=== PATIENT | female | born 1965 | race Caucasian/White ===

== ENCOUNTER → 2016-03-30 | Outpatient (CLI) | payer MEDICAID | LOC: FIMAGING 14:56 | DX: Z12.31 Encounter for screening mammogram for malignant neoplasm of breast (principal) | CPT/HCPCS: G0202 ==

== ENCOUNTER → 2016-06-18 | Outpatient (CLI) | payer MEDICAID | LOC: FIMAGING 09:36 | PROVIDERS: ATTEND Nurse Practitioner Women's Health | DX: Z13.820 Encounter for screening for osteoporosis (principal); Z87.81 Personal history of (healed) traumatic fracture ==

== ENCOUNTER → 2016-08-17 | Outpatient (CLI) | payer MEDICAID | LOC: FIMAGING 10:04 | PROVIDERS: ATTEND Obstetrics & Gynecology Gynecology | DX: E04.2 Nontoxic multinodular goiter (principal); N92.0 Excessive and frequent menstruation with regular cycle ==

== ENCOUNTER 2016-08-25 20:41 | Emergency (ER) | payer MEDICAID ==
--- NOTE | 2016-08-25 20:45 | EDPHY ---
H & P Smoking Status: Current every day smoker HPI/ROS: CHIEF COMPLAINT: Allergic reaction HISTORY OF PRESENT ILLNESS: This patient is a 51 year old female presenting with acute allergic reaction following a wasp sting to her left hand 40 minutes ago. She noted local swelling and took two Benadryl at home. She continued to feel worse and developed swollen lips and tongue and itching all over her body. She has never had a reaction like this before. No dizziness or shortness of breath. REVIEW OF SYSTEMS: Constitutional: No fever, no chills Eyes: No visual changes Respiratory: No cough, no shortness of breath Cardiac: No chest pain Gastrointestinal: No nausea, no vomiting, no abdominal pain Genitourinary: no dysuria Musculoskeletal: No extremity swelling Skin: No hives Neurological: No headache Psychiatric: Feels anxious (Ceci Roca) Past Medical/Surgical History: Depression (Ceci Roca) Social History: Daughter at bedside (Ceci Roca) Physical Exam: General Appearance: Alert, anxious Eyes: Pupils equal and round, mild periorbital swelling ENT, Mouth: Moderate lip swelling, mild tongue swelling. Mucous membranes moist. Neck: Normal inspection, no stridor Respiratory: Lungs are clear to auscultation, no wheezing Cardiovascular: Regular rate and rhythm Neurological: A&O, nonfocal, normal gait Skin: Erythema over the anterior chest wall and the left hand; no hives present Extremities: Swelling of left hand Psychiatric: Anxious (Ceci Roca) Constitutional: Initial Vital Signs Temperature (C) 36.4 C 08/25/16 20:48 Heart Rate 104 H 08/25/16 20:48 Respiratory Rate 22 H 08/25/16 20:48 Blood Pressure 80/65 L 08/25/16 20:48 O2 Sat (%) 98 08/25/16 20:48 O2 Delivery Mode Room Air O2 (L/minute) 3 Allergies/Adverse Reactions: penicillin G Allergy (Verified 08/12/12 02:41) Home Medications: Medication Instructions Recorded Cephalexin [Keflex] 500 mg PO QID #28 cap 12/17/12 Hydrocodone Bit/Acetaminophen 1 - 2 tab PO Q4-6PRN #20 tab 12/17/12 [Vicodin 5/500] NO HOME MEDS 12/17/12 Hydrocodone/APAP 5/325 [[place] 1 - 2 tab PO Q4H PRN #14 tab 12/22/14 5/325] Hydrocodone/APAP 5/325 [[place] 1 - 2 tab PO Q4 PRN #10 tab 03/29/15 5/325 (RX)] VYVANSE 03/29/15 EPINEPHRINE [EPIPEN] 0.3 mg IM ONCE #2 syr 08/25/16 predniSONE 60 mg PO DAILY #9 tab 08/25/16 Medical Decision Making ED Course/Re-evaluation: 51 year old female presenting with acute anaphylaxis to a wasp sting on the left hand 40 minutes ago. 20:42 Administered 0.3mg IM Epinephrine 20:44 Administered 50mg IV Benadryl, 50mg IV Zantac, and 125mcg IV methylprednisolone. Observed patient. She is improving. BP 114/97 9pm: Continues to feel better. 21:10 Care of this patient transferred to Dr. Bonilla at shift change. (Ceci Roca) I assumed care of this patient at 9:00 p.m.. She was serially examined during her stay in the department. She remained normotensive. She had some mild tongue swelling that persisted. She was swallowing easily and had no respiratory difficulty. Lungs remained clear, no wheezing. At the time of my 3rd exam, at 10:45 p.m., she was complaining of left hand pain itching related to the site of the sting. She is not itching otherwise but has excoriations on her lower back from scratching earlier. She will be discharged home in stable condition. RX written by Dr. Roca. ( Candy Bonilla) Differential Diagnosis: Differential diagnosis includes though it is not limited to laryngeal edema, bronchospasm, hypotension, angioedema. (Ceci Roca) - Data Points Medications Given: Discontinued Medications Diphenhydramine HCl (Benadryl Injection) 50 mg IVP EDNOW ONE Stop: 08/25/16 20:58 Last Admin: 08/25/16 21:00 Dose: 50 mg Epinephrine HCl (Epinephrine) 0.3 mg IM EDNOW ONE Stop: 08/25/16 20:57 Last Admin: 08/25/16 21:00 Dose: 0.3 mg Sodium Chloride (Ns) 1,000 mls @ 0 mls/hr IV ONCE ONE PRN Reason: Wide Open Stop: 08/25/16 20:59 Last Admin: 08/25/16 20:45 Dose: 1,000 mls Ibuprofen (Motrin) 600 mg PO EDNOW ONE Stop: 08/26/16 00:08 Last Admin: 08/26/16 00:11 Dose: 600 mg Methylprednisolone Sodium Succinate (Solu-Medrol) 125 mg IVP EDNOW ONE Stop: 08/25/16 20:58 Last Admin: 08/25/16 21:00 Dose: 125 mg Ranitidine HCl (Zantac) 50 mg IVP EDNOW ONE Stop: 08/25/16 20:58 Last Admin: 08/25/16 21:00 Dose: 50 mg Departure - Departure Disposition: Home, Routine, Self-Care Clinical Impression: Anaphylactic reaction Condition: Good Instructions: Epinephrine (By injection), Insect Bite or Sting (ED), Anaphylaxis (ED) Additional Instructions: 1. Take Claritin in the morning and Benadryl at night each day for the next three days. 2. Take your Prednisone as prescribed. 3. EpiPen instructions attached. 4. Follow up with your primary care provider for continued management of your allergy reactions. 5. Return to the emergency department for difficulty breathing, swelling in your mouth or throat, hives, or other worsening of condition. Referrals: Ayo Lynch MD [Primary Care Provider] - As per Instructions Prescriptions: EPINEPHRINE [EPIPEN] 0.3 mg IM ONCE #2 syr predniSONE 60 mg PO DAILY #9 tab Report Scribed for: Ceci Roca Report Scribed by: Carmencita Ovalle Date of Report: 08/25/16 Time of Report: 20:45 Physician Review and Approval Statement: 08/25/16 20:50 Portions of this note were transcribed by a medical billing assistant. I personally performed a history, physical exam, medical decision making, and confirmed accuracy of information the transcribed note (eCci Roca)
[2016-08-25] MEDS ORDERED: RANITIDINE 50 MG/2 ML VIAL IVP ONE (20:57)
[2016-08-25] MEDS ORDERED: methylPREDNISolone SOD SUCC 125 MG/2 ML VIAL IVP ONE (20:57)
[2016-08-25] MEDS ORDERED: NS 1,000 ML IV ONE (20:58)
[2016-08-25 23:01] VITALS: RESP 20; TEMP 98.1
[2016-08-26] MEDS ORDERED: IBUPROFEN 600 MG TAB PO ONE ×2 (00:07→00:08)
[2016-08-26 00:27] VITALS: BP 107/63; PULSE 78; O2SAT 97
== END 2016-08-26 00:26 | disposition home or self-care (01) ==
DX: T63.441A Toxic effect of venom of bees, accidental (unintentional), initial encounter (principal); F17.200 Nicotine dependence, unspecified, uncomplicated
CPT/HCPCS: 96374

== ENCOUNTER 2016-10-07 17:22 | Emergency (ER) | payer MEDICAID ==
[2016-10-07 17:28] VITALS: TEMP 98.1
[2016-10-07] MEDS ORDERED: predniSONE 20 MG TAB PO ONE (17:32)
[2016-10-07] MEDS ORDERED: NS 1,000 ML IV ONE (17:33)
[2016-10-07] MEDS ORDERED: FAMOTIDINE 20 MG in NS 100 ML IV ONE (17:33)
--- NOTE | 2016-10-07 17:38 | EDPHY ---
H & P Stated Complaint: bee stung l foot/itchy/dizzy Time Seen by Provider: 10/07/16 17:28 HPI/ROS: Chief complaint: Wasp sting History of present illness: This is a 51-year-old female who presents to the emergency department for a wasp sting. Patient was stung on her left foot just prior to arrival. She started to develop pain and swelling in the foot. She has developed some tingling in her mouth. She is concerned because in August of this year she was stung on her hand and had an anaphylactic reaction. She came here given her recent history. She has taken 50 mg of Benadryl. She denies other associated signs or symptoms at this time including no swelling of the lips, tongue or throat, no difficulty swallowing or breathing, no rash. Review of systems: A 10 point review of systems was obtained and other than described above was negative - Personal History LMP (Females 10-55): Post Menopausal Current Tetanus/Diphtheria Vaccine: Yes Tetanus Vaccine Date: < 10 years - Medical/Surgical History Hx Asthma: No Hx Chronic Respiratory Disease: No Hx Diabetes: No Hx Cardiac Disease: No Hx Renal Disease: No Hx Cirrhosis: No Hx Alcoholism: No Hx HIV/AIDS: No Hx Splenectomy or Spleen Trauma: No Other PMH: Depression none - Social History Smoking Status: Current every day smoker - Physical Exam Exam: General Appearance: Alert and no distress. Eyes: Pupils equal and round no injection. ENT: No angioedema. No hoarseness, no drooling, no trismus, no stridor. Respiratory: Chest is non tender, lungs are clear to auscultation. Cardiac: regular rate and rhythm Gastrointestinal: Abdomen is soft and non tender, no masses, bowel sounds normal. Musculoskeletal: Neck is supple and non tender. Extremities have full range of motion and are non tender. Skin: Mild erythema to the distal left foot. No other rash. Constitutional: Initial Vital Signs Temperature (C) 36.7 C 10/07/16 17:25 Heart Rate 102 H 10/07/16 17:25 Respiratory Rate 22 H 10/07/16 17:25 Blood Pressure 122/90 H 10/07/16 17:25 O2 Sat (%) 98 10/07/16 17:25 O2 Delivery Mode Room Air Allergies/Adverse Reactions: venom-wasp Allergy (Severe, Verified 10/07/16 17:24) penicillin G Allergy (Verified 10/07/16 17:24) Home Medications: Medication Instructions Recorded EPINEPHRINE [EPIPEN] 0.3 mg IM ONCE #2 syr 08/25/16 predniSONE 40 mg PO DAILY 3 Days 10/07/16 Medical Decision Making ED Course/Re-evaluation: Patient seen under the supervision of my secondary supervising physician Dr. Monty Laguerre. Patient presents to the emergency department for a wasp sting. She recently had an anaphylactic type reaction to a wasp sting and therefore was very concerned. During her stay she only had mild irritation of her left foot. Her vital signs stayed stable. She was IV hydrated and treated with prednisone and Pepcid. She had taken Benadryl prior to arrival. She was feeling well and requesting to be discharged. I will discharge her home on prednisone and asked her to continue Benadryl and Pepcid. She already has epinephrine pens at home and I discussed their use again. She is to follow up with a primary care doctor for recheck. She is supposed to undergo a colonoscopy tomorrow, I have asked her to talk with her inventory clerk before undergoing this to ensure no contraindications. Return precautions are given. Patient voiced understanding and agreement with plan. Differential Diagnosis: Included but not limited to allergic reaction, anaphylaxis, contact dermatitis - Data Points Medications Given: Discontinued Medications Diphenhydramine HCl (Benadryl Injection) 50 mg IVP EDNOW ONE Stop: 10/07/16 17:33 Last Admin: 10/07/16 17:47 Dose: Not Given Sodium Chloride (Ns) 1,000 mls @ 0 mls/hr IV EDNOW ONE; Wide Open PRN Reason: Protocol Stop: 10/07/16 17:34 Last Admin: 10/07/16 17:48 Dose: 1,000 mls Famotidine 20 mg/ Sodium (Chloride) 102 mls @ 408 mls/hr IV EDNOW ONE Stop: 10/07/16 17:47 Last Admin: 10/07/16 17:48 Dose: 102 mls Prednisone (Prednisone) 60 mg PO EDNOW ONE Stop: 10/07/16 17:33 Last Admin: 10/07/16 17:48 Dose: 60 mg Departure - Departure Disposition: Home, Routine, Self-Care Clinical Impression: Allergic reaction Qualifiers: Encounter type: initial encounter Qualified Code(s): T78.40XA - Allergy, unspecified, initial encounter Condition: Good Instructions: General Allergic Reaction (ED) Additional Instructions: Follow-up with her primary care doctor this week for recheck Take prednisone as prescribed until finished Take [id number] Benadryl and Pepcid as directed for the next 2-3 days for symptom control Please let your inventory clerk know what medications you are on and why you are on them before undergoing your procedure tomorrow If symptoms worsen or new symptoms develop return immediately to the emergency room Referrals: Ayo Lynch MD [Primary Care Provider] - As per Instructions Prescriptions: predniSONE 40 mg PO DAILY 3 Days
[2016-10-07 19:00] VITALS: BP 133/86; PULSE 84; RESP 16; O2SAT 98
== END 2016-10-07 18:50 | disposition home or self-care (01) ==
DX: T63.461A Toxic effect of venom of wasps, accidental (unintentional), initial encounter (principal); F17.200 Nicotine dependence, unspecified, uncomplicated
CPT/HCPCS: 96374; J1200

== ENCOUNTER 2016-10-09 08:57 | Day surgery (SDC) | payer MEDICAID ==
[2016-10-09] MEDS ORDERED: LR 1,000 ML IV ONE (09:13)
[2016-10-09] MEDS ORDERED: LIDOCAINE 1% 2 ML INJ ID PRN (09:13)
[2016-10-09] MEDS ORDERED: LIDOCAINE 1% 2 ML INJ ONE (09:17)
--- NOTE | 2016-10-09 11:46 | PDANEPAE ---
ANE History of Present Illness colonoscopy ANE Past Medical History - Cardiovascular History Hx Hypertension: No Hx Arrhythmias: No Hx Chest Pain: No Hx Coronary Artery / Peripheral Vascular Disease: No Hx CHF / Valvular Disease: No Hx Palpitations: No - Pulmonary History Hx COPD: No Hx Asthma/Reactive Airway Disease: No Hx Recent Upper Respiratory Infection: No Hx Oxygen in Use at Home: No Hx Sleep Apnea: No Sleep Apnea Screening Result - Last Documented: Negative - Neurologic History Hx Cerebrovascular Accident: No Hx Seizures: No Hx Dementia: No - Endocrine History Hx Diabetes: No - Renal History Hx Renal Disorders: No - Liver History Hx Hepatic Disorders: No - Neurological & Psychiatric Hx Hx Neurological and Psychiatric Disorders: No - Cancer History Hx Cancer: No - Congenital Disorder History Hx Congenital Disorders: No - GI History Hx Gastrointestinal Disorders: No - Chronic Pain History Chronic Pain: No - Surgical History Prior Surgeries: TONSILECTOMY ANE Review of Systems - Exercise capacity METS (RN): 4 METS ANE Patient History - Allergies Allergies/Adverse Reactions: venom-wasp Allergy (Severe, Verified 10/07/16 17:24) penicillin G Allergy (Verified 10/07/16 17:24) - NPO status NPO Since - Liquids (Date): 10/09/16 NPO Since - Liquids (Time): 00:00 NPO Since - Solids (Date): 10/07/16 NPO Since - Solids (Time): 08:00 - Anes Hx Anes Hx: no prior problems - Smoking Hx Smoking Status: Current every day smoker - Family Anes Hx Family Hx Anesthesia Complications: N/A ANE Labs/Vital Signs - Vital Signs Blood Pressure: 113/78 Heart Rate: 84 Respiratory Rate: 18 O2 Sat (%): 95 Height: 172.72 cm Weight: 72.575 kg ANE Physical Exam - Airway Mallampati Score: Class 2 Mouth exam: normal dental/mouth exam - Pulmonary Pulmonary: no respiratory distress - Cardiovascular Cardiovascular: regular rate and rhythym - ASA Status ASA Status: II ANE Anesthesia Plan Anesthesia Plan: GA with mask
[2016-10-09] MEDS ORDERED: PROPOFOL/EMULSION 500 MG/50 ML BOTTLE IV ONE (11:48)
[2016-10-09] MEDS ORDERED: MIDAZOLAM 2 MG/2 ML VIAL ONE (11:48)
[2016-10-09] MEDS ORDERED: LIDOCAINE 2% 5 ML SDV ONE (11:49)
--- NOTE | 2016-10-09 11:49 | PDGENHP ---
History & Physical Chief Complaint: screening colonoscopy Relevant Physical Exam: GEN: NAD. Cardiac:RRR. Lungs: CTA B. Abd: Soft, nt, nd
[2016-10-09] MEDS ORDERED: LR 500 ML IV PRN (11:58)
[2016-10-09] MEDS ORDERED: NALOXONE HCL 0.4 MG/ML INJ IVP PRN (11:58)
[2016-10-09] MEDS ORDERED: ONDANSETRON 4 MG/2 ML VIAL IVP PRN (11:58)
[2016-10-09] MEDS ORDERED: ALBUTEROL 3 ML DEYVIAL IH PRN (11:58)
[2016-10-09] MEDS ORDERED: fentaNYL 100 MCG/2 ML INJ IVP PRN (11:58)
--- NOTE | 2016-10-09 12:08 | POSTOPPROG ---
Post Op Note Date of Operation: 10/09/16 Surgeon: Skinny Gore Pre-op Diagnosis: screen colonoscopy Post-op Diagnosis: Poor prep, colon polyp Indication: Screen colonoscopy Procedure: Colonoscopy Findings: Poor prep, colon polyp Inf/Abcess present in the surg proc area at time of surgery?: No
--- NOTE | 2016-10-09 12:12 | POSTANESTH ---
Post Anesthetic Evaluation Cardiovascular Status: Normal, Stable Respiratory Status: Normal, Stable Level of Consciousness/Mental Status: Can Participate in Eval Pain Control: Adequate, Prn Tx Ordered Nausea/Vomiting Control: Adequate, Prn Tx Ordered Complications Possibly Related to Anesthesia: None Noted
[2016-10-09 12:26] VITALS: BP 118/84
--- NOTE | 2016-10-09 13:17 | GPN ---
[f rep st] PROCEDURE NOTE PREPROCEDURE DIAGNOSIS: Screening colonoscopy. POSTPROCEDURE DIAGNOSES: Poor colon prep, small colon polyps status post removal. NAME OF PROCEDURE: Colonoscopy with biopsies. ANESTHESIA: Medications are monitored anesthesia care. SPECIMENS: Biopsies are none. COMPLICATIONS: None. ESTIMATED BLOOD LOSS: Minimal. INDICATIONS: The patient is a 51-year-old female here for a screening colonoscopy. The risks and b enefits of the procedure were discussed with the patient. Consent obtained. Risks include, but not limited to, bleeding, perforation, risks associated with sedation. The patient is ASA class 2. DESCRIPTION OF PROCEDURE: The adult colonoscope was advanced into the cecum and appendiceal orifice . There was stool throughout the colon and adherent to the colon sarmiento. Approximately 40% of the c olon could not be visualized. I did find a small, 1 mm polyp in the cecum, which was removed using cold biopsy forceps and sent off to pathology. Retroflexed views in the rectum were normal. IMPRESSION: 1. Poor colon prep. Unable to exclude polyps less than 1 cm or large, flat polyps. 2. Small colon polyps, status post removal. RECOMMENDATIONS: 1. Discharge home with escort. 2. Advance diet as tolerated. 3. Repeat colonoscopy at the next available appointment in the hospital for screening purposes. Sh e will need a 2-day GoLYTELY preparation. 4. I will follow up the final biopsy results. Biopsy results are available within 10 days. Thank you for allowing me to participate in the care of your patient. Please do not hesitate to akil sotelo if questions. /[id number]/MODL
[2016-10-09 13:25] VITALS: PULSE 74; RESP 18; TEMP 97.5; O2SAT 95
== END 2016-10-09 13:20 | disposition home or self-care (01) ==
LOC: FSGY 08:57
PROVIDERS: ATTEND Internal Medicine Gastroenterology
PROC: 0DJD8ZZ Inspection of Lower Intestinal Tract, Via Natural or Artificial Opening Endoscopic (ICD-10-PCS; principal; 2016-10-09 09:30)
PROC: 0DBH7ZX Excision of Cecum, Via Natural or Artificial Opening, Diagnostic (ICD-10-PCS; principal; 2016-10-09 09:30)
CPT/HCPCS: J2250; J2704

== ENCOUNTER → 2018-08-04 | Outpatient (CLI) | payer MEDICAID | LOC: FIMAGING 09:27 ==